=== PATIENT | female | born 1975 | race Hispanic/Latino ===

== ENCOUNTER 2016-11-29 19:50 | Emergency (ER) | payer OTHER ==
[~2016-11-29] VITALS: Ht 149.9 cm; Wt 52.3 kg
[~2016-11-29 19:50] MED LIST: ACID CONTROL150 MG PO; ATIVAN1 MG PO; COLACE100 MG PO; CYANOCOBAL1000 MCG/2 IM; DAILY VITAMIN1 EAC4 PO; DILAUDID4 MG PO; DOMPERIDONE1 GM MC; Dilaudid PO; ENDOCET 5-3251 EACH PO; ENDOCET 7.5-321 EACH; Habitrol,Nicoderm CQ TD; IBUPROFEN800 MG PO; IMODIUM MS REL1 EACH PO; IRON160 M1 PO; MORPHINE SULFAT15 M1; MOTRIN800 MG PO; MS CONTIN,ORAMO15 M1 PO; MS CONTIN,ORAMO60 MG PO; MS Contin,Oramorph S PO; PEPCID40 MG PO; PERCOCET 5/31 TABLET PO; PERCOCET 7.51 TABLET PO; PROMETHAZINE HC25 M1 PO; Percocet 5/325,Endoc PO; Phenergan PO; REGLAN10 M1 PO; REGLAN5 MG PO; TRAMADOL HCL50 MG PO; Tylenol PR; VICODIN,LORT1 TABLET PO; Vitamin B-12 SC; ZOFRAN4 MG PO
[2016-11-29] MEDS ORDERED: ZOFRAN ODT4 MG PO (22:14)
[2016-11-29 22:29] VITALS: BP 109/79
== END 2016-11-29 22:31 | disposition home or self-care (01) ==
LOC: EME 19:50 → RME 19:50
DX: K04.7 Periapical abscess without sinus (principal); L03.211 Cellulitis of face; F17.200 Nicotine dependence, unspecified, uncomplicated; Z88.2 Allergy status to sulfonamides; Z88.1 Allergy status to other antibiotic agents
CPT/HCPCS: 99281; 99284; J2405

== ENCOUNTER → 2017-06-27 | Outpatient (CLI) | payer OTHER ==
[~2017-06-27] MED LIST changes: +ZOFRAN ODT4 MG PO
== END | disposition home or self-care (01) ==
LOC: CDC 14:08
DX: Z01.810 Encounter for preprocedural cardiovascular examination (principal); M96.1 Postlaminectomy syndrome, not elsewhere classified
CPT/HCPCS: 93000

== ENCOUNTER 2017-09-07 18:37 | Inpatient (IN) | payer OTHER ==
[~2017-09-07] VITALS: Ht 149.9 cm; Wt 51.2 kg
[~2017-09-07 18:37] MED LIST changes: +OXYCODONE-APAP1 EACH PO; +OXYCONTIN30 MG PO; +VENTOLIN HFA18 GM IH; +ZANTAC150 MG PO
[2017-09-07 19:28] LABS: APPEARANCE SL.HAZY ((CLEAR)); BILIRUBIN NEGATIVE; BLOOD MODERATE; COLOR YELLOW ((YELLOW)); GLUCOSE (STRIP) NEGATIVE; KETONES NEGATIVE; LEUKOCYTES NEGATIVE; NITRITE NEGATIVE; PROTEIN (STRIP) 100; SPECIFIC GRAVITY 1.017 (1.000-1.030); UROBILINOGEN 0.2 MG/DL (0.2-1.0)
[2017-09-07 19:30] LABS: BACTERIA 3+ /HPF; EPITHELIAL CELLS 2+ /HPF; MUCUS TRACE /LPF; UCUL ADDED? YES; WHITE BLOOD CELLS 0-5 /HPF (0-5)
[2017-09-07 19:55] LABS: HEMATOCRIT 29.7 % (36.0-46.0); HEMOGLOBIN 9.7 G/DL (11.9-15.5); MCH 31.5 PG (29.0-34.0); MCHC 32.7 G/DL (30.0-36.0); MCV 96.4 FL (83-99); PLATELET COUNT 152 K/uL (156-360); RBC DIS.WIDTH-CV 17.7 % (11.8-14.6); RBC DIS.WIDTH-SD 61.5 % (39-53); RED BLOOD COUNT 3.08 M/uL (3.80-5.20); WHITE BLOOD COUNT 3.5 K/uL (4.1-10.2)
[2017-09-07 20:03] LABS: CHLORIDE 100 mEq/L (99-109); POTASSIUM 4.3 mEq/L (3.7-5.4); SODIUM 131 mEq/L (136-147)
[2017-09-07 20:05] LABS: GLUCOSE 95 mg/dL (70-99)
[2017-09-07 20:09] LABS: CREATININE 0.8 mg/dL (0.6-1.3); GFR ESTIMATE (CALCULATED) > 59 mL/min/
[2017-09-07 20:10] LABS: UREA NITROGEN (BUN) 12 mg/dL (9-23)
[2017-09-07] MEDS ORDERED: OXYCONTIN20 MG PO (22:29)
[2017-09-07] MEDS ORDERED: OXYCONTIN30 MG PO (23:29)
[2017-09-07] MEDS ORDERED: TYLENOL REGULA325 MG PO (23:29)
[2017-09-08] VITALS (8 sets, daily range): BP systolic 91–107; BP diastolic 50–56
[2017-09-08 06:47] LABS: HEMATOCRIT 24.1 % (36.0-46.0); HEMOGLOBIN 7.3 G/DL (11.9-15.5); MCH 30.7 PG (29.0-34.0); MCHC 30.3 G/DL (30.0-36.0); MCV 101.3 FL (83-99); PLATELET COUNT 114 K/uL (156-360); RBC DIS.WIDTH-CV 18.2 % (11.8-14.6); RBC DIS.WIDTH-SD 64.7 % (39-53); RED BLOOD COUNT 2.38 M/uL (3.80-5.20); WHITE BLOOD COUNT 4.7 K/uL (4.1-10.2)
[2017-09-08 07:12] LABS: CHLORIDE 109 MEQ/L (99-109); CREATININE 0.7 MG/DL (0.6-1.3); GFR ESTIMATE (CALCULATED) > 59 mL/min/; GLUCOSE 92 mg/dL (70-99); POTASSIUM 4.1 MEQ/L (3.7-5.4); SODIUM 137 MEQ/L (136-147); UREA NITROGEN (BUN) 12 mg/dL (9-23)
[2017-09-09] VITALS: BP 93/53
[2017-09-09 07:33] VITALS: BP 104/55
[2017-09-09 09:40] LABS: ALBUMIN 2.5 G/DL (3.2-4.8); ALKALINE PHOSPHATASE 50 IU/L (3-129); ALT (GPT) 9 IU/L (3-49); AST (GOT) 14 IU/L (2-34); DIRECT BILIRUBIN 0.1 mg/dL (0.0-0.3); TOTAL BILIRUBIN 0.3 MG/DL (0.0-1.0); TOTAL PROTEIN 4.5 G/DL (6.4-8.3)
[2017-09-09 10:15] LABS: HEMATOCRIT 25.1 % (36.0-46.0); HEMOGLOBIN 7.6 G/DL (11.9-15.5); MCH 31.1 PG (29.0-34.0); MCHC 30.3 G/DL (30.0-36.0); MCV 102.9 FL (83-99); PLATELET COUNT 113 K/uL (156-360); RBC DIS.WIDTH-CV 17.9 % (11.8-14.6); RBC DIS.WIDTH-SD 64.6 % (39-53); RED BLOOD COUNT 2.44 M/uL (3.80-5.20)
[2017-09-09 10:41] LABS: CHLORIDE 112 MEQ/L (99-109); CREATININE 0.5 MG/DL (0.6-1.3); GFR ESTIMATE (CALCULATED) > 59 mL/min/; GLUCOSE 79 mg/dL (70-99); POTASSIUM 4.7 MEQ/L (3.7-5.4); SODIUM 136 MEQ/L (136-147); UREA NITROGEN (BUN) 8 mg/dL (9-23)
[2017-09-09 15:23] VITALS: BP 105/56
[2017-09-09 22:39] VITALS: BP 96/54
[2017-09-09 22:57] VITALS: BP 96/53
[2017-09-09 23:57] VITALS: BP 90/53
[2017-09-10] VITALS (8 sets, daily range): BP systolic 97–135; BP diastolic 53–87
[2017-09-10 06:45] LABS: ALBUMIN 2.7 G/DL (3.2-4.8); ALKALINE PHOSPHATASE 57 IU/L (3-129); ALT (GPT) 9 IU/L (3-49); AST (GOT) 16 IU/L (2-34); CHLORIDE 110 MEQ/L (99-109); CREATININE 0.6 MG/DL (0.6-1.3); GFR ESTIMATE (CALCULATED) > 59 mL/min/; GLUCOSE 81 mg/dL (70-99); POTASSIUM 4.4 MEQ/L (3.7-5.4); SODIUM 136 MEQ/L (136-147); TOTAL BILIRUBIN 0.9 MG/DL (0.0-1.0); TOTAL PROTEIN 5.1 G/DL (6.4-8.3); UREA NITROGEN (BUN) 10 mg/dL (9-23)
[2017-09-10 06:47] LABS: BASOPHIL (%) 0.8 % (0-1); EOSINOPHIL (%) 2.5 % (0-5); HEMATOCRIT 32.2 % (36.0-46.0); IMMATURE GRANULOCYTE (%) 0.8 % (0.0-0.7); LYMPHOCYTE (%) 43.3 % (15-42); LYMPHOCYTE COUNT 0.5 K/uL (1.0-2.8); MCH 30.6 PG (29.0-34.0); MCHC 31.7 G/DL (30.0-36.0); MONOCYTE (%) 10.8 % (3-12); MONOCYTE COUNT 0.1 K/uL (0-0.8); NEUTROPHIL (%) 41.8 % (45-76); NEUTROPHIL COUNT 0.5 K/uL (1.8-6.4); PLATELET COUNT 95 K/uL (156-360); RBC DIS.WIDTH-CV 19.6 % (11.8-14.6); RBC DIS.WIDTH-SD 67.7 % (39-53)
[2017-09-10 07:00] LABS: HEMOGLOBIN 10.2 G/DL (11.9-15.5); MCV 96.7 FL (83-99); RED BLOOD COUNT 3.33 M/uL (3.80-5.20); WHITE BLOOD COUNT 1.2 K/uL (4.1-10.2)
[2017-09-11 00:01] VITALS: BP 104/62
[2017-09-11 07:07] LABS: HEMATOCRIT 32.6 % (36.0-46.0); HEMOGLOBIN 10.4 G/DL (11.9-15.5); MCH 30.4 PG (29.0-34.0); MCHC 31.9 G/DL (30.0-36.0); MCV 95.3 FL (83-99); PLATELET COUNT 125 K/uL (156-360); RBC DIS.WIDTH-CV 19.5 % (11.8-14.6); RBC DIS.WIDTH-SD 65.1 % (39-53); RED BLOOD COUNT 3.42 M/uL (3.80-5.20); WHITE BLOOD COUNT 2.2 K/uL (4.1-10.2)
[2017-09-11 07:25] VITALS: BP 118/68
[2017-09-11 07:28] LABS: ALBUMIN 2.5 G/DL (3.2-4.8); ALKALINE PHOSPHATASE 46 IU/L (3-129); ALT (GPT) 10 IU/L (3-49); AST (GOT) 14 IU/L (2-34); CHLORIDE 108 MEQ/L (99-109); CREATININE 0.5 MG/DL (0.6-1.3); GFR ESTIMATE (CALCULATED) > 59 mL/min/; GLUCOSE 80 mg/dL (70-99); POTASSIUM 4.3 MEQ/L (3.7-5.4); SODIUM 137 MEQ/L (136-147); UREA NITROGEN (BUN) 10 mg/dL (9-23)
[2017-09-11 07:31] LABS: TOTAL BILIRUBIN 0.3 MG/DL (0.0-1.0)
[2017-09-11 07:48] LABS: ABS NEUTROPHIL COUNT 0.5; ANISOCYTOSIS 1+; ATYPICAL LYMPHOCYTE 7.1 %; BAND NEUTROPHILS 0.9 % (0-8.0); BASOPHILS 0.9 %; EOSINOPHIL ABS CT 0; EOSINOPHILS 1.8 % (0-5.0); LYMPHOCYTES 45.6 % (15.0-45.0); MACROCYTES 1+; MONOCYTES 22.3 % (0-9.0); NUCLEATED RBC'S 1.8; PLAT.SUFFICIENCY DECREASED; SEG.NEUTROPHILS 21.4 % (46.0-76.0); SMUDGE CELLS 10.7
== END 2017-09-11 13:45 | disposition home or self-care (01) | DRG 872 ==
LOC: EME 18:37 → EDOF 23:08 → 2EAST 23:08 → ENRESERV 23:25 → EDOF 09-08 01:08 → 2EAST 09-08 01:10 → ENPENDDIS 09-11 → 2EAST 09-11 13:45
PROVIDERS: Emergency Medicine; Hospitalist; Internal Medicine
DX: A41.9 Sepsis, unspecified organism (principal); N39.0 Urinary tract infection, site not specified; D61.818 Other pancytopenia; K91.2 Postsurgical malabsorption, not elsewhere classified; E87.1 Hypo-osmolality and hyponatremia; E87.2 Acidosis; E46 Unspecified protein-calorie malnutrition; E86.0 Dehydration; F17.210 Nicotine dependence, cigarettes, uncomplicated; G89.4 Chronic pain syndrome; J45.909 Unspecified asthma, uncomplicated; K21.9 Gastro-esophageal reflux disease without esophagitis; E53.8 Deficiency of other specified B group vitamins; F41.9 Anxiety disorder, unspecified; Z90.49 Acquired absence of other specified parts of digestive tract; Z98.1 Arthrodesis status; Z98.84 Bariatric surgery status; Z88.0 Allergy status to penicillin; Z88.2 Allergy status to sulfonamides; Z91.013 Allergy to seafood; Z82.49 Family history of ischemic heart disease and other diseases of the circulatory system; Z82.5 Family history of asthma and other chronic lower respiratory diseases
CPT/HCPCS: 36415; 36430; 71020; 76705; 80048; 80053; 80076; 80202; 81003; 83605; 85025; 85027; 86747 90; 86850; 86900; 86901; 86920; 86999; 87040; 87086; 87493; 87502; 96374 59; 99202; 99281; 99285; J1200; J1650; J1885; J1956; J3370; J7030; P9016

== ENCOUNTER 2018-02-19 06:51 | Day surgery (SDC) | payer OTHER ==
[~2018-02-19] VITALS: Ht 149.9 cm; Wt 45.0 kg
[~2018-02-19 06:51] MED LIST changes: +CYMBALTA30 MG PO; +DAILY VALUE1 EACH PO; +OXYCONTIN20 MG PO; +TYLENOL REGULA325 MG PO
[2018-02-19 07:42] LABS: APPEARANCE SL.HAZY ((CLEAR)); BILIRUBIN NEGATIVE; BLOOD SMALL; COLOR YELLOW ((YELLOW)); GLUCOSE (STRIP) NEGATIVE; KETONES NEGATIVE; LEUKOCYTES NEGATIVE; NITRITE NEGATIVE; PROTEIN (STRIP) NEGATIVE; SPECIFIC GRAVITY 1.016 (1.000-1.030)
[2018-02-19] MEDS ORDERED: OXYCONTIN15 MG PO (07:43)
[2018-02-19] MEDS ORDERED: ENDOCET 5-3251 EACH PO (07:43)
[2018-02-19 07:48] LABS: BACTERIA 2+ /HPF; EPITHELIAL CELLS 2+ /HPF; MUCUS 1+ /LPF; RED BLOOD CELLS 0-5 /HPF (0-5); WHITE BLOOD CELLS 0-5 /HPF (0-5)
[2018-02-19 07:56] VITALS: BP 103/58
[2018-02-19 11:30] VITALS: BP 106/69
== END 2018-02-19 12:05 | disposition home or self-care (01) ==
LOC: SDC 06:51
PROVIDERS: Neurological Surgery
DX: T85.113A Breakdown (mechanical) of implanted electronic neurostimulator, generator, initial encounter (principal); Y83.1 Surgical operation with implant of artificial internal device as the cause of abnormal reaction of the patient, or of later complication, without mention of misadventure at the time of the procedure; F17.210 Nicotine dependence, cigarettes, uncomplicated; Z88.2 Allergy status to sulfonamides; Z88.1 Allergy status to other antibiotic agents; Z91.013 Allergy to seafood; Z79.891 Long term (current) use of opiate analgesic; Z98.84 Bariatric surgery status
CPT/HCPCS: 81003; 81025; J0131; J0330; J1100; J1170; J2250; J2405; J3010; J3370; S0020

== ENCOUNTER 2018-04-27 14:13 | Emergency (ER) | payer OTHER ==
[~2018-04-27] VITALS: Ht 149.9 cm; Wt 44.5 kg
[~2018-04-27 14:13] MED LIST changes: +OXYCONTIN15 MG PO
[2018-04-27 15:45] LABS: HEMOGLOBIN 12.1 G/DL (11.9-15.5); MCH 32.2 PG (29.0-34.0); MCHC 32.7 G/DL (30.0-36.0); MCV 98.4 FL (83-99); PLATELET COUNT 172 K/uL (156-360); RBC DIS.WIDTH-CV 15.5 % (11.8-14.6); RBC DIS.WIDTH-SD 56.2 % (39-53); RED BLOOD COUNT 3.76 M/uL (3.80-5.20); WHITE BLOOD COUNT 2.8 K/uL (4.1-10.2)
[2018-04-27 16:00] LABS: CHLORIDE 105 mEq/L (99-109); SODIUM 136 mEq/L (136-147)
[2018-04-27 16:01] LABS: GLUCOSE 99 mg/dL (70-99)
[2018-04-27 16:05] LABS: CREATININE 0.8 mg/dL (0.6-1.3); GFR ESTIMATE (CALCULATED) > 59 mL/min/
[2018-04-27 16:06] LABS: UREA NITROGEN (BUN) 10 mg/dL (9-23)
[2018-04-27 18:38] LABS: APPEARANCE CLEAR ((CLEAR)); BILIRUBIN NEGATIVE; BLOOD NEGATIVE; COLOR YELLOW ((YELLOW)); GLUCOSE (STRIP) NEGATIVE; KETONES NEGATIVE; LEUKOCYTES NEGATIVE; NITRITE NEGATIVE; PROTEIN (STRIP) NEGATIVE; SPECIFIC GRAVITY 1.015 (1.000-1.030)
[2018-04-27] MEDS ORDERED: ZOFRAN ODT4 MG PO (18:55)
[2018-04-27 19:41] VITALS: BP 101/61
== END 2018-04-27 19:42 | disposition home or self-care (01) ==
LOC: EME 14:13
PROVIDERS: Nurse Practitioner Family
DX: R53.81 Other malaise (principal); R53.83 Other fatigue; R11.0 Nausea; F41.9 Anxiety disorder, unspecified; Z98.84 Bariatric surgery status; Z90.49 Acquired absence of other specified parts of digestive tract; Z88.2 Allergy status to sulfonamides; Z88.1 Allergy status to other antibiotic agents; Z88.0 Allergy status to penicillin; Z91.013 Allergy to seafood; F17.200 Nicotine dependence, unspecified, uncomplicated
CPT/HCPCS: 71046; 80048; 81003; 85027; 99281; 99284; J2405; J7030